=== PATIENT | male | born 1950 | race Caucasian/White ===

== ENCOUNTER 2019-03-18 10:38 | Emergency (ER) | payer MEDICARE, OTHER ==
--- NOTE | 2019-03-18 11:13 | EDM.PDOCBH ---
ED HPI GENERAL MEDICAL PROBLEM - General Chief Complaint: Drug or Alcohol Abuse Stated Complaint: DETOX Time Seen by Provider: 03/18/19 10:58 Source of Information: Reports: Patient History Limitations: Reports: No Limitations - History of Present Illness INITIAL COMMENTS - FREE TEXT/NARRATIVE: 68 yo with hx of alcoholism, DM presents wishing to go to detox at [facility]. Was drinking earlier this am and "had enough" and now wished to go to detox. No acute medical concerns. Taking metformin and statin as prescribed. - Related Data Allergies Allergy/AdvReac Type Severity Reaction Status Date / Time bee venom protein (honey bee) Allergy Anaphylactic Verified 03/18/19 10:52 Shock Penicillins Allergy Rash Verified 03/18/19 10:52 ivory soap Allergy Swelling Uncoded 03/18/19 10:52 Home Meds: Home Meds Aspirin [Ecotrin] 81 mg PO DAILY 03/31/18 [History] atorvaSTATin [Lipitor] 10 mg PO BEDTIME 03/31/18 [History] metFORMIN [Glucophage] 500 mg PO BIDMEALS 03/31/18 [History] Past Medical History HEENT History: Reports: Impaired Vision Cardiovascular History: Reports: High Cholesterol Gastrointestinal History: Reports: None Psychiatric History: Reports: Addiction Endocrine/Metabolic History: Reports: Diabetes, Type II, Obesity/BMI 30+ - Past Surgical History Head Surgeries/Procedures: Reports: None HEENT Surgical History: Reports: None Cardiovascular Surgical History: Reports: None GI Surgical History: Reports: Colonoscopy, Hernia Repair/Other Endocrine Surgical History: Reports: None Dermatological Surgical History: Reports: None Social & Family History - Tobacco Use Smoking Status *Q: Former Smoker Used Tobacco, but Quit: Yes Month/Year Tobacco Last Used: 1987 Second Hand Smoke Exposure: No - Caffeine Use Caffeine Use: Reports: Coffee - Alcohol Use Days Per Week of Alcohol Use: 7 Number of Drinks Per Day: 12 Total Drinks Per Week: 84 - Recreational Drug Use Recreational Drug Use: No ED ROS GENERAL - Review of Systems Review Of Systems: See Below Constitutional: Reports: No Symptoms HEENT: Reports: No Symptoms Respiratory: Reports: No Symptoms Cardiovascular: Reports: No Symptoms Endocrine: Reports: No Symptoms GI/Abdominal: Reports: No Symptoms : Reports: No Symptoms Musculoskeletal: Reports: No Symptoms Skin: Reports: No Symptoms Neurological: Reports: No Symptoms Psychiatric: Reports: No Symptoms Hematologic/Lymphatic: Reports: No Symptoms Immunologic: Reports: No Symptoms ED EXAM, BEHAVIORAL HEALTH - Physical Exam Exam: See Below Exam Limited By: No Limitations General Appearance: Alert, No Apparent Distress Ears: Normal External Exam Nose: Normal Inspection Throat/Mouth: Normal Inspection Head: Atraumatic, Normocephalic Neck: Normal Inspection Respiratory/Chest: No Respiratory Distress, Lungs Clear Cardiovascular: Regular Rate, Rhythm GI/Abdominal: Soft, Non-Tender Extremities: Normal Inspection Neurological: Alert, Normal Mood/Affect Psychiatric: Alert Skin Exam: Warm, Dry COURSE, BEHAVIORAL HEALTH COMP - Course Vital Signs: Last Vital Signs Temp 36.5 C 03/18/19 10:58 Pulse 92 03/18/19 10:58 Resp 16 03/18/19 10:58 BP 135/78 03/18/19 10:58 Pulse Ox 92 L 03/18/19 10:58 Orders, Labs, Meds: Active Orders 24 hr Category Date Time Status POC Glucose [Blood Glucose Check, Bedside] [RC] ONETIME Care 03/18/19 10:51 Active Laboratory Tests 03/18/19 03/18/19 Range/Units 11:01 11:11 Urine Opiates Screen Negative (NEGATIVE) Ur Oxycodone Screen Negative (NEGATIVE) Urine Methadone Screen Negative (NEGATIVE) Ur Propoxyphene Screen Negative (NEGATIVE) Ur Barbiturates Screen Negative (NEGATIVE) Ur Tricyclics Screen Negative (NEGATIVE) Ur Phencyclidine Scrn Negative (NEGATIVE) Ur Amphetamine Screen Negative (NEGATIVE) U Methamphetamines Scrn Negative (NEGATIVE) Urine MDMA Screen Negative (NEGATIVE) U Benzodiazepines Scrn Negative (NEGATIVE) U Cocaine Metab Screen Negative (NEGATIVE) U Marijuana (THC) Screen Negative (NEGATIVE) Ethyl Alcohol 323 mg/dL Re-Assessment/Re-Exam: 68 yo with hx of etoh use disorder here wishing to go to detox Reports alcohol use as recently as this morning. No other drug use. No acute medical concerns. Obtaining URSULA, u tox, POC glucose per request of [facility]. Anticipate we will be able to medically clear him for admission to their facility. Discharge vs Psych Eval/Treatment:: Labs reviewed, acceptable for admission at [facility]. 03/18/19 11:45 Departure - Departure Time of Disposition: 11:45 Disposition: DC/Tfer to Other 70 Clinical Impression: Alcohol abuse - Discharge Information Referrals: Kevin Baeza MD [Primary Care Provider] - Forms: ED Department Discharge Additional Instructions: Please go immediately to [facility] for detox - My Orders Last 24 Hours: My Active Orders 03/18/19 10:51 POC Glucose [Blood Glucose Check, Bedside] [RC] ONETIME - Assessment/Plan Last 24 Hours: My Active Orders 03/18/19 10:51 POC Glucose [Blood Glucose Check, Bedside] [RC] ONETIME
== END 2019-03-18 12:14 | disposition other institution (70) ==
LOC: JP.ED 10:38
DX: F10.10 Alcohol abuse, uncomplicated (principal); E11.9 Type 2 diabetes mellitus without complications; E78.5 Hyperlipidemia, unspecified; E66.9 Obesity, unspecified; Z87.891 Personal history of nicotine dependence; Z91.030 Bee allergy status; Z88.0 Allergy status to penicillin; Z91.048 Other nonmedicinal substance allergy status; Z68.30 Body mass index [BMI] 30.0-30.9, adult
CPT/HCPCS: 36415; 80305; 82962; 99283; 99285; G0480

== ENCOUNTER 2019-03-30 09:54 | Emergency (ER) | payer MEDICAID, MEDICARE ==
--- NOTE | 2019-03-30 11:33 | EDM.PDOC ---
ED HPI GENERAL MEDICAL PROBLEM - General Chief Complaint: General Stated Complaint: DRINKING PAST TWO WEEKS Time Seen by Provider: 03/30/19 11:20 Source of Information: Reports: Patient, Family, Old Records, RN History Limitations: Reports: No Limitations - History of Present Illness INITIAL COMMENTS - FREE TEXT/NARRATIVE: 68 yo male presents intoxicated requesting medical clearance for detox. He has had a toothache for about a month, but has not seen a dentist. He also has had a productive cough recently. No fever. Last drank this morning. Here with a brother who transported. Onset: Gradual Duration: Chronic Location: Reports: Generalized Quality: Reports: Ache (tooth L upper premolar) Severity: Moderate Improves with: Reports: Medication Worsens with: Reports: Other (time) Context: Reports: Other (alcoholism) Associated Symptoms: Reports: Cough, Other (toothache). Denies: Fever/Chills, Nausea/Vomiting, Shortness of Breath Treatments [employer]LO[employer] COMPENSATION DIRECTOR: Reports: Other (see below) (none) - Related Data Allergies Allergy/AdvReac Type Severity Reaction Status Date / Time bee venom protein (honey bee) Allergy Anaphylactic Verified 03/18/19 10:52 Shock Penicillins Allergy Rash Verified 03/18/19 10:52 ivory soap Allergy Swelling Uncoded 03/18/19 10:52 Home Meds: Home Meds Aspirin [Ecotrin] 81 mg PO DAILY 03/31/18 [History] atorvaSTATin [Lipitor] 10 mg PO BEDTIME 03/31/18 [History] metFORMIN [Glucophage] 500 mg PO BIDMEALS 03/31/18 [History] Clindamycin HCl [Cleocin HCl] 300 mg PO TID #30 capsule 03/30/19 [Rx] Past Medical History HEENT History: Reports: Impaired Vision Cardiovascular History: Reports: High Cholesterol Gastrointestinal History: Reports: None Psychiatric History: Reports: Addiction Endocrine/Metabolic History: Reports: Diabetes, Type II, Obesity/BMI 30+ - Infectious Disease History Infectious Disease History: Reports: Chicken Pox, Measles, Mumps - Past Surgical History Head Surgeries/Procedures: Reports: None HEENT Surgical History: Reports: None Cardiovascular Surgical History: Reports: None GI Surgical History: Reports: Colonoscopy, Hernia Repair/Other Endocrine Surgical History: Reports: None Dermatological Surgical History: Reports: None Social & Family History - Tobacco Use Smoking Status *Q: Never Smoker - Caffeine Use Caffeine Use: Reports: Coffee - Alcohol Use Days Per Week of Alcohol Use: 7 Number of Drinks Per Day: 6 Total Drinks Per Week: 42 Date of Last Drink: 03/30/19 Time of Last Drink: 02:00 - Recreational Drug Use Recreational Drug Use: No ED ROS GENERAL - Review of Systems Review Of Systems: See Below Constitutional: Reports: No Symptoms HEENT: Reports: Dental Pain Respiratory: Reports: Cough, Sputum. Denies: Shortness of Breath, Wheezing, Pleuritic Chest Pain, Hemoptysis Cardiovascular: Reports: No Symptoms Endocrine: Reports: No Symptoms GI/Abdominal: Reports: No Symptoms : Reports: No Symptoms Musculoskeletal: Reports: No Symptoms Skin: Reports: No Symptoms Neurological: Reports: No Symptoms Psychiatric: Reports: No Symptoms ED EXAM, GENERAL - Physical Exam Exam: See Below Exam Limited By: No Limitations General Appearance: Alert, WD/WN, No Apparent Distress Eye Exam: Bilateral Eye: Normal Inspection Ears: Normal External Exam, Normal Canal, Hearing Grossly Normal, Normal TMs Ear Exam: Bilateral Ear: Auricle Normal, Canal Normal, TM normal Nose: Normal Inspection, No Blood Throat/Mouth: Normal Inspection, Normal Lips, Normal Oropharynx, Normal Voice, No Airway Compromise. No: Normal Teeth (decayed teeth, more than one.) Head: Atraumatic, Normocephalic Neck: Normal Inspection Respiratory/Chest: No Respiratory Distress, Rhonchi (R base) Cardiovascular: Regular Rate, Rhythm, No Edema GI/Abdominal: Other (ventral hernia, obese, ? ascites) Back Exam: Normal Inspection. No: CVA Tenderness (R), CVA Tenderness (L) Extremities: Normal Inspection, Normal Range of Motion, Non-Tender, No Pedal Edema Neurological: Alert, Oriented, CN II-XII Intact, No Motor/Sensory Deficits, Other (intoxicated) Psychiatric: Normal Affect, Normal Mood Skin Exam: Warm, Dry, Intact, Normal Color, No Rash Lymphatic: No Adenopathy Course - Vital Signs Last Recorded V/S: Last Vital Signs Temp 36.6 C 03/30/19 10:33 Pulse 102 H 03/30/19 10:33 Resp 12 03/30/19 10:33 BP 115/71 03/30/19 10:33 Pulse Ox 85 L 03/30/19 10:33 - Orders/Labs/Meds Labs: Laboratory Tests 03/30/19 03/30/19 Range/Units 10:46 11:28 WBC 7.4 (4.5-11.0) K/uL RBC 4.74 (4.30-5.90) M/uL Hgb 14.7 (12.0-15.0) g/dL Hct 45.4 (40.0-54.0) % MCV 96 (80-98) fL MCH 31 (27-31) pg MCHC 32 (32-36) % Plt Count 212 (150-400) K/uL Ethyl Alcohol 303 mg/dL Departure - Departure Time of Disposition: 11:55 Disposition: DC/Tfer to Other 70 Condition: Fair Clinical Impression: Alcohol abuse, Dental infection, Bronchitis Alcohol intoxication Qualifiers: Complication of substance-induced condition: uncomplicated Qualified Code(s): F10.920 - Alcohol use, unspecified with intoxication, uncomplicated - Discharge Information *PRESCRIPTION DRUG MONITORING PROGRAM REVIEWED*: No *COPY OF PRESCRIPTION DRUG MONITORING REPORT IN PATIENT NEIL: No Prescriptions: Clindamycin HCl [Cleocin HCl] 300 mg PO TID #30 capsule Referrals: PCP,None [Primary Care Provider] - Forms: ED Department Discharge Additional Instructions: Take clindamycin as directed until gone. F/U with a dentist in the next 10-14 days. To [facility] directly for detox.
== END 2019-03-30 12:45 | disposition other institution (70) ==
LOC: JP.ED 09:54
DX: F10.120 Alcohol abuse with intoxication, uncomplicated (principal); K04.7 Periapical abscess without sinus; J40 Bronchitis, not specified as acute or chronic; E11.9 Type 2 diabetes mellitus without complications; E66.9 Obesity, unspecified; E78.00 Pure hypercholesterolemia, unspecified; Z91.030 Bee allergy status; Z88.0 Allergy status to penicillin; Z91.048 Other nonmedicinal substance allergy status; Z79.82 Long term (current) use of aspirin; Z79.84 Long term (current) use of oral hypoglycemic drugs; Z68.31 Body mass index [BMI] 31.0-31.9, adult; Y90.8 Blood alcohol level of 240 mg/100 ml or more
CPT/HCPCS: 36415; 82962; 85027; 99283; 99284; G0480

== ENCOUNTER 2024-07-11 19:57 | Emergency (ER) | payer MEDICAID, MEDICARE, OTHER ==
[2024-07-11] MEDS: Ketorolac 30 MG/ML SDV IM ONE (21:40)
== END 2024-07-11 22:09 ==
LOC: JP.ED 19:57
DX: Z02.89 Encounter for other administrative examinations (principal); E78.00 Pure hypercholesterolemia, unspecified; E11.42 Type 2 diabetes mellitus with diabetic polyneuropathy; E66.9 Obesity, unspecified; Z68.28 Body mass index [BMI] 28.0-28.9, adult; Z88.0 Allergy status to penicillin; Z91.041 Radiographic dye allergy status; Z91.030 Bee allergy status; Z91.048 Other nonmedicinal substance allergy status; Z79.84 Long term (current) use of oral hypoglycemic drugs; Z79.01 Long term (current) use of anticoagulants; Z79.899 Other long term (current) drug therapy
CPT/HCPCS: 82947; 96372; 99283; J1885